=== PATIENT | female | born 1975 | race Asian ===

== ENCOUNTER → 2016-08-18 | Outpatient (CLI) | payer OTHER ==
--- NOTE | 2016-08-18 16:19 | CT ---
CT Coronary Calcium Score Clinical History: 40-year-old female with a family history of hypercholesterolemia. The patient takes a daily aspirin and statin. She presents today for routine heart screening. Comparison Study: Dictated report of a CT calcium score, dated February 13, 2006, reporting an age a sco re of 0. Technique: Prospectively-gated noncontrast images through the chest were obtained. Dose reduction michelle hniques were utilized. Findings: The Calcium score according to the Agatston-Janowitz criteria is 0, which places the patient in the 1 0th percentile for age. This means 90% of the patients within this age group will have a higher calc ium score than this patient. Noncardiac Evaluation: There is no pulmonary nodule. The visualized cardiac chambers and pericardium are unremarkable. There is no adenopathy. The visualized hepatic dome is unremarkable. The osseous st ructures are age-appropriate Impression: A calcium score of 0 places the patient in [id number] percentile rank for age. There is no i dentifiable plaque, and the probability of coronary disease is very unlikely (less than 1%). Recommendations: 1. Reassure the patient. 2. Discuss risk factors. 3. Repeat CT scans no more often than every 5 years.
== END ==
LOC: CIMAGING 15:13
PROVIDERS: ATTEND Internal Medicine Interventional Cardiology
DX: Z13.6 Encounter for screening for cardiovascular disorders (principal); Z83.49 Family history of other endocrine, nutritional and metabolic diseases; Z79.82 Long term (current) use of aspirin
CPT/HCPCS: 75571-PO

== ENCOUNTER → 2017-03-26 | Outpatient (CLI) | payer OTHER | LOC: CIMAGING 12:18 | PROVIDERS: ATTEND Obstetrics & Gynecology | DX: Z12.31 Encounter for screening mammogram for malignant neoplasm of breast (principal) | CPT/HCPCS: G0202 ==

== ENCOUNTER → 2018-04-02 | Outpatient (CLI) | payer OTHER | LOC: CIMAGING 07:35 | PROVIDERS: ATTEND Obstetrics & Gynecology | DX: Z12.31 Encounter for screening mammogram for malignant neoplasm of breast (principal) ==